=== PATIENT | female | born 1990 ===

== ENCOUNTER 2018-04-19 23:15 | Emergency (ER) | payer MEDICARE, MEDICAID ==
[2018-04-19 23:17] VITALS: BMI 20.1
[2018-04-20 00:02] LABS: HCG,QUALITATIVE URINE NEGATIVE (NEGATIVE); SQUAMOUS EPITHIAL 5 /hpf (0-5); URINE BACTERIA RARE (<OCC); URINE BILIRUBIN NEGATIVE (NEGATIVE); URINE BLOOD 3+ (NEGATIVE); URINE CALCIUM OXALATE CRYSTALS RARE /hpf (<OCC); URINE CLARITY Hazy (Clear); URINE COLOR Yellow (YELLOW); URINE GLUCOSE (UA) NORMAL (Normal); URINE LEUKOCYTE ESTERASE TRACE Leu/uL (Negative); URINE PROTEIN 1+ mg/dL (NEGATIVE)
[2018-04-20 00:19] LABS: BASO % 0.6 % (0.0-2.0); EOS % 0.1 % (0.0-4.0); HEMOGLOBIN 12.5 g/dL (11.0-16.0); LYMPH # 1.4 K/uL (1.0-4.3); LYMPH % 17.5 % (20.0-40.0); MEAN CORPUSCULAR HEMOGLOBIN 28.4 pg (27.0-31.0); MEAN CORPUSCULAR HGB CONC 33.4 g/dL (33.0-37.0); MEAN PLATELET VOLUME 8.4 fL (7.2-11.7); MONO # 0.9 K/uL (0.0-0.8); MONO % 10.7 % (0.0-10.0); NEUT # 5.7 K/uL (1.8-7.0); NEUT % 71.1 % (50.0-75.0); RBC 4.4 Mil/uL (3.80-5.20); RED CELL DISTRIBUTION WIDTH 14.2 % (11.5-14.5); WHITE BLOOD COUNT 8.1 K/uL (4.8-10.8)
--- NOTE | 2018-04-20 00:47 | C.PDOC ---
History Of Present Illness 27 year old female presents to the ED complaining of abdominal pain, cramping, and bloating. Pain is described as dull and aching and rated as 4/10. Patient states she has similar presentation when she has her menstrual cycle and that it has been going on for the last couple of months. Patient is currently on her menstrual cycle. She reports she took Tylenol with no relief. Time Seen by Provider: 04/20/18 00:46 Chief Complaint (Nursing): Abdominal Pain History Per: Patient History/Exam Limitations: no limitations Onset/Duration Of Symptoms: Days Current Symptoms Are (Timing): Still Present Severity: Moderate Pain Scale Rating Of: 4 Location Of Pain/Discomfort: Diffuse Past Medical History Reviewed: Historical Data, Nursing Documentation, Vital Signs Vital Signs: Last Vital Signs Temp 98.9 F 04/20/18 03:28 Pulse 65 04/20/18 06:10 Resp 16 04/20/18 06:10 BP 100/82 04/20/18 06:10 Pulse Ox 99 04/20/18 06:10 - Medical History PMH: Denies: Chronic Kidney Disease Surgical History: No Surg Hx Family History: States: No Known Family Hx - Social History Hx Alcohol Use: Yes Hx Substance Use: No - Immunization History Hx Tetanus Toxoid Vaccination: No Hx Influenza Vaccination: No Hx Pneumococcal Vaccination: No Review Of Systems Constitutional: Negative for: Fever, Chills Gastrointestinal: Positive for: Nausea, Abdominal Pain. Negative for: Vomiting , Diarrhea Genitourinary: Negative for: Dysuria, Hematuria Physical Exam - Physical Exam Appears: Non-toxic Skin: Warm, Dry Head: Normacephalic Eye(s): bilateral: Normal Inspection Nose: Normal Oral Mucosa: Moist Neck: Normal ROM Chest: Symmetrical Cardiovascular: Rhythm Regular Respiratory: No Rales, No Rhonchi, No Wheezing Gastrointestinal/Abdominal: Tenderness (Suprapubic tenderness ), No Guarding, No Rebound Extremity: Normal ROM Neurological/Psych: Oriented x3, Normal Speech Gait: Steady ED Course And Treatment - Laboratory Results Result Diagrams: 04/20/18 00:12 04/20/18 00:12 O2 Sat by Pulse Oximetry: 96 (RA) Pulse Ox Interpretation: Normal Medical Decision Making Medical Decision Making: Orders: - ceftriaxone - Toradol - Urine C&S Disposition Counseled Patient/Family Regarding: Studies Performed, Diagnosis - Disposition Disposition Time: 00:47 Condition: FAIR Forms: [facility] (Andorran) - Clinical Impression Clinical Impression: Abdominal pain, DUB (dysfunctional uterine bleeding) - Scribe Statement The provider has reviewed the documentation as recorded by the Scribe Cristina Gold All medical record entries made by the Valentinibe were at my direction and personally dictated by me. I have reviewed the chart and agree that the record accurately reflects my personal performance of the history, physical exam, medical decision making, and the department course for this patient. I have also personally directed, reviewed, and agree with the discharge instructions and disposition. Physician Patient Turnover Patient Signed Over To: Shyam Rodriguez Handoff Comments: pending ct results, re-eval and disposition
[2018-04-20] MEDS ORDERED: cefTRIAXone IV 1 gm in Dextros 50 ML IVPB ONE (00:59)
[2018-04-20] MEDS ORDERED: cefTRIAXone 1 gm 1 GM/100 ML BAG IVPB ONE (01:04)
[2018-04-20 01:08] LABS: ALBUMIN 4.4 g/dL (3.5-5.0); BLOOD UREA NITROGEN 11 mg/dL (7-17); CALCIUM 9.4 mg/dl (8.6-10.4); GFR NON-AFRICAN AMERICAN > 60
[2018-04-20 01:09] LABS: ALB/GLOB RATIO 1.2 (1.0-2.1); ALT/SGPT 30 U/L (9-52); AST/SGOT 20 U/L (14-36); LIPASE 33 U/L (23-300)
[2018-04-20] MEDS ORDERED: Iodixanol 320 MG/ML 100 ML BOTTLE IV ONE (04:47)
[2018-04-20 07:15] VITALS: BP 113/77; PULSE 84; RESP 18; TEMP 98.6; O2SAT 98
--- NOTE | 2018-04-20 11:22 | CT ---
Date of service: 04/20/2018 PROCEDURE: CT Abdomen and Pelvis with contrast HISTORY: abd pain COMPARISON: None. TECHNIQUE: Contrast dose: 100 mL Visipaque 320 Radiation dose: Total exam DLP = 257.8 mGy-cm. This CT exam was performed using one or more of the following dose reduction techniques: Automated exposure control, adjustment of the mA and/or kV according to patient size, and/or use of iterative reconstruction technique. FINDINGS: LOWER THORAX: Trace right pleural effusion. LIVER: Hepatic steatosis. No gross lesion or ductal dilatation. GALLBLADDER AND BILE DUCTS: Unremarkable. PANCREAS: Unremarkable. No gross lesion or ductal dilatation. SPLEEN: Unremarkable. ADRENALS: Unremarkable. No mass. KIDNEYS AND URETERS: Unremarkable. No hydronephrosis. No solid mass. VASCULATURE: Unremarkable. No aortic aneurysm. BOWEL: Mild hyperenhancement and wall thickening of a few small-bowel loops anterior to the uterus/left adnexa. . No obstruction. No gross mural thickening. APPENDIX: No findings to suggest acute appendicitis. PERITONEUM: Small volume ascites. No free air. LYMPH NODES: Unremarkable. No enlarged lymph nodes. BLADDER: Unremarkable. REPRODUCTIVE: Heterogeneous left adnexa with serpiginous enhancing tubular structure. BONES: No acute fracture. OTHER FINDINGS: None. IMPRESSION: Heterogeneous left adnexal serpiginous enhancing tubular structure may represent tubo-ovarian abscesses. Pelvic ultrasound is recommended for further evaluation. Trace right pleural effusion. Small volume ascites. Mild reactive enteritis anterior to the uterus/left adnexa.
== END 2018-04-20 08:02 | disposition home or self-care (01) ==
LOC: C.ER 23:15
DX: N93.8 Other specified abnormal uterine and vaginal bleeding (principal); R10.9 Unspecified abdominal pain
CPT/HCPCS: 74177; 80053; 81001; 83690; 84703; 85025; 87086; 96365; 96375; 99284; J0696; J1885; Q9967

== ENCOUNTER 2018-08-13 11:09 | Emergency (ER) | payer MEDICAID, MEDICARE, OTHER ==
[2018-08-13 11:10] VITALS: BMI 20.1
[2018-08-13 11:47] VITALS: RESP 18; O2SAT 100
[2018-08-13] MEDS ORDERED: Sodium Chloride 0.9% 1,000 ML IV ONE (12:14)
[2018-08-13] MEDS ORDERED: Sodium Chloride 0.9% 1,000 ML ONE (12:33)
[2018-08-13 12:49] LABS: HCG,QUALITATIVE URINE NEGATIVE (NEGATIVE)
[2018-08-13 12:51] LABS: BASO # 0.1 K/uL (0.0-0.2); BASO % 0.9 % (0.0-2.0); EOS % 0.8 % (0.0-4.0); HEMOGLOBIN 13.6 g/dL (11.0-16.0); LYMPH # 1.1 K/uL (1.0-4.3); LYMPH % 18.6 % (20.0-40.0); MEAN CELL VOLUME 86.3 fL (81.0-99.0); MEAN CORPUSCULAR HEMOGLOBIN 28.4 pg (27.0-31.0); MEAN CORPUSCULAR HGB CONC 32.9 g/dL (33.0-37.0); MEAN PLATELET VOLUME 8.7 fL (7.2-11.7); MONO # 0.6 K/uL (0.0-0.8); MONO % 10.7 % (0.0-10.0); NEUT # 4.1 K/uL (1.8-7.0); NRBC % 0.1 % (0.0-2.0); RBC 4.8 Mil/uL (3.80-5.20); RED CELL DISTRIBUTION WIDTH 14.1 % (11.5-14.5); WHITE BLOOD COUNT 5.9 K/uL (4.8-10.8)
[2018-08-13 12:59] LABS: SQUAMOUS EPITHIAL 2 /hpf (0-5); URINE BACTERIA RARE (<OCC); URINE BILIRUBIN NEGATIVE (NEGATIVE); URINE BLOOD 3+ (NEGATIVE); URINE CLARITY Clear (Clear); URINE COLOR Yellow (YELLOW); URINE GLUCOSE (UA) NORMAL (Normal); URINE LEUKOCYTE ESTERASE NEG Leu/uL (Negative); URINE PROTEIN 1+ mg/dL (NEGATIVE)
[2018-08-13 13:06] LABS: ALB/GLOB RATIO 1.2 (1.0-2.1); ALBUMIN 4.3 g/dL (3.5-5.0); ALT/SGPT 31 U/L (9-52); AST/SGOT 23 U/L (14-36); BLOOD UREA NITROGEN 12 mg/dL (7-17); CALCIUM 9.4 mg/dl (8.6-10.4); GFR NON-AFRICAN AMERICAN > 60; LIPASE 32 U/L (23-300)
--- NOTE | 2018-08-13 13:48 | C.PDOC ---
History Of Present Illness 28 y/o female comes in complaining of abdominal pain, associated with vomiting. States she feels bloated and also currently has her period so shes been bleeding. Patient went to [facility] and they couldnt see her so they told her to come here. Patient denies any nausea, diarrhea, fever, chills, or other associated symptoms. Time Seen by Provider: 08/13/18 11:50 Chief Complaint (Nursing): Abdominal Pain History Per: Patient History/Exam Limitations: no limitations Onset/Duration Of Symptoms: Days Current Symptoms Are (Timing): Still Present Severity: Mild Quality Of Discomfort: Cramping Exacerbating Factors: Cough Past Medical History Reviewed: Historical Data, Nursing Documentation, Vital Signs Vital Signs: Last Vital Signs Temp 98.9 F 08/13/18 11:44 Pulse 103 H 08/13/18 11:44 Resp 18 08/13/18 11:44 BP 113/83 08/13/18 11:44 Pulse Ox 100 08/13/18 11:44 - Medical History PMH: No Chronic Diseases Denies: Chronic Kidney Disease Surgical History: No Surg Hx Family History: States: No Known Family Hx - Social History Hx Alcohol Use: Yes Hx Substance Use: No - Immunization History Hx Tetanus Toxoid Vaccination: No Hx Influenza Vaccination: No Hx Pneumococcal Vaccination: No Review Of Systems Except As Marked, All Systems Reviewed And Found Negative. Constitutional: Negative for: Fever, Chills Gastrointestinal: Positive for: Vomiting, Abdominal Pain Genitourinary: Positive for: Vaginal Bleeding Physical Exam - Physical Exam Appears: Non-toxic, No Acute Distress Skin: Warm, Dry Head: Atraumatic, Normacephalic Eye(s): bilateral: Normal Inspection Oral Mucosa: Moist Neck: Supple Chest: Symmetrical Cardiovascular: Rhythm Regular, No Murmur Respiratory: Normal Breath Sounds, No Rales, No Rhonchi, No Wheezing Gastrointestinal/Abdominal: Soft, Tenderness (to suprapubic region, mild) Extremity: Bilateral: Atraumatic, Normal Color And Temperature, Normal ROM Neurological/Psych: Oriented x3, Normal Speech Gait: Steady ED Course And Treatment - Laboratory Results Result Diagrams: 08/13/18 12:46 08/13/18 12:46 Lab Results: Total Bilirubin 0.9 mg/dL (0.2-1.3) 08/13/18 12:46 AST 23 U/L (14-36) 08/13/18 12:46 ALT 31 U/L (9-52) 08/13/18 12:46 Alkaline Phosphatase 72 U/L (38-126) 08/13/18 12:46 Total Protein 8.0 g/dL (6.3-8.3) 08/13/18 12:46 Albumin 4.3 g/dL (3.5-5.0) 08/13/18 12:46 Globulin 3.7 gm/dL (2.2-3.9) 08/13/18 12:46 Albumin/Globulin Ratio 1.2 (1.0-2.1) 08/13/18 12:46 Lipase 32 U/L (23-300) 08/13/18 12:46 Urine Color Yellow (YELLOW) 08/13/18 12:31 Urine Clarity Clear (Clear) 08/13/18 12:31 Urine pH 6.0 (5.0-8.0) 08/13/18 12:31 Ur Specific [place] 1.030 (1.003-1.030) 08/13/18 12:31 Urine Protein 1+ mg/dL (NEGATIVE) H 08/13/18 12:31 Urine Glucose (UA) Normal mg/dL (Normal) 08/13/18 12:31 Urine Ketones Negative mg/dL (NEGATIVE) 08/13/18 12:31 Urine Blood 3+ (NEGATIVE) H 08/13/18 12:31 Urine Nitrate Negative (NEGATIVE) 08/13/18 12:31 Urine Bilirubin Negative (NEGATIVE) 08/13/18 12:31 Urine Urobilinogen 2.0 mg/dL (0.2-1.0) H 08/13/18 12:31 Ur Leukocyte Esterase Neg [place]/uL (Negative) 08/13/18 12:31 Urine WBC (Auto) 2 /hpf (0-5) 08/13/18 12:31 Urine RBC (Auto) 272 /hpf (0-3) H 08/13/18 12:31 Ur Squamous Epith Cells 2 /hpf (0-5) 08/13/18 12:31 Urine Bacteria Rare (<OCC) 08/13/18 12:31 Urine HCG, Qual Negative (NEGATIVE) 08/13/18 12:31 Urine HCG, Qual Negative (NEGATIVE) 08/13/18 12:31 Lab Interpretation: Normal Urine POC: Negative O2 Sat by Pulse Oximetry: 100 (RA) Pulse Ox Interpretation: Normal - CT Scan/US Abd/Pel/Transvag US Other Rad Studies (CT/US): Read By Radiologist, Radiology Report Reviewed CT/US Interpretation: FINDINGS: UTERUS: Measures 9.5 x 4.5 x 5.5 cm. Anteverted. ENDOMETRIUM: Measures 7 mm in diameter. 2 x 2 x 3 mm probable cyst. CERVIX: No cervical abnormality identified. RIGHT OVARY: Measures edil roximately 4.0 x 2.9 x 3.7 cm. Blood flow is demonstrated. LEFT OVARY: Complex left adnexal cyst measures 4.2 x 4.1 x 4.4 cm, likely ovarian. The ovary is not clearly identified and likely measures approximately 4.5 x 4.4 x 4.2 cm. FREE FLUID: Complex free fluid, bilateral adnexal regions. Trace fluid within the right upper quadrant. OTHER FINDINGS: None. IMPRESSION: Complex fluid noted within bilateral adnexa. Trace fluid also evident within the right upper quadrant. Complex left adnexal cyst measures 4.2 x 4.1 x 4.4 cm. Recommend clinical correlation and 46 week ultrasound follow-up. This examination is predicated on a negative test. Correlate clinically. Progress Note: Treated with IVF NSS, toradol and zofran. On re-evaluation requesting discharge. Patient provided with copy of US report and advised to follow up with [facility] for further evaluation Reassessment Condition: Improved Medical Decision Making Medical Decision Making: Plan: --Transvaginal US --UA --Labs --IV fluids --Toradol 30 mg IV --Zofran 4 mg IV Disposition Counseled Patient/Family Regarding: Studies Performed, Diagnosis, Need For Fol lowup, Rx Given - Disposition Referrals: [facility] [Outside] [facility] [Outside] Disposition: HOME/ ROUTINE Disposition Time: 15:45 Condition: STABLE Additional Instructions: Follow up with [facility] for further evaluation Prescriptions: Naproxen [Naprosyn] 1 tab PO BID PRN #25 tab PRN Reason: Pain Instructions: Ovarian Cysts Forms: [facility] (Irish) - POA Present On Arrival: None - Clinical Impression Clinical Impression: Abdominal pain, Ovarian cyst - PA / ASSESSMENT COUNSELOR / Resident Statement MD/DO has reviewed & agrees with the documentation as recorded. - Scribe Statement The provider has reviewed the documentation as recorded by the Scribe Zonia Zhao All medical record entries made by the Scribe were at my direction and personally dictated by me. I have reviewed the chart and agree that the record accurately reflects my personal performance of the history, physical exam, medical decision making, and the department course for this patient. I have also personally directed, reviewed, and agree with the discharge instructions and disposition.
--- NOTE | 2018-08-13 15:23 | US ---
Date of service: 08/13/2018 HISTORY: vaginal bleeding COMPARISON: CT abdomen and pelvis with contrast performed 04/20/18 TECHNIQUE: Real-time transabdominal pelvic ultrasound was performed. In addition a transvaginal pelvic ultrasound was necessary to better depict pelvic anatomy. FINDINGS: UTERUS: Measures 9.5 x 4.5 x 5.5 cm. Anteverted. ENDOMETRIUM: Measures 7 mm in diameter. 2 x 2 x 3 mm probable cyst. CERVIX: No cervical abnormality identified. RIGHT OVARY: Measures approximately 4.0 x 2.9 x 3.7 cm. Blood flow is demonstrated. LEFT OVARY: Complex left adnexal cyst measures 4.2 x 4.1 x 4.4 cm, likely ovarian. The ovary is not clearly identified and likely measures approximately 4.5 x 4.4 x 4.2 cm. FREE FLUID: Complex free fluid, bilateral adnexal regions. Trace fluid within the right upper quadrant. OTHER FINDINGS: None. IMPRESSION: Complex fluid noted within bilateral adnexa. Trace fluid also evident within the right upper quadrant. Complex left adnexal cyst measures 4.2 x 4.1 x 4.4 cm. Recommend clinical correlation and 46 week ultrasound follow-up. This examination is predicated on a negative test. Correlate clinically.
[2018-08-13 15:48] VITALS: BP 109/76; PULSE 89; TEMP 99.1
== END 2018-08-13 15:36 | disposition home or self-care (01) ==
LOC: C.ER 11:09
DX: N83.202 Unspecified ovarian cyst, left side (principal); R10.9 Unspecified abdominal pain
CPT/HCPCS: 76830; 76856; 80053; 81001; 81025; 83690; 84703; 85025; 96361; 96374; 96375; 99285; J1885; J2405; J7030